=== PATIENT | female | born 1955 | race Caucasian/White ===

== ENCOUNTER → 2024-01-05 09:11 | Outpatient (REF) | payer OTHER, SELFPAY | LOC: HWWDC 09:11 | PROVIDERS: ATTENDING PHYSICIAN Family Medicine | DX: Z12.31 Encounter for screening mammogram for malignant neoplasm of breast (principal) | CPT/HCPCS: 77063; 77067 ==

== ENCOUNTER → 2024-09-13 16:03 | Outpatient (REF) | payer OTHER, SELFPAY | LOC: RAD 16:03 | PROVIDERS: ATTENDING PHYSICIAN Nurse Practitioner Adult Health; FAMILY PHYSICIAN Family Medicine | DX: R05.1 Acute cough (principal) | CPT/HCPCS: 71046 ==

== ENCOUNTER → 2025-01-07 10:32 | Outpatient (REF) | payer OTHER, SELFPAY | LOC: HWWDC 10:32 | PROVIDERS: ATTENDING PHYSICIAN Nurse Practitioner Adult Health; FAMILY PHYSICIAN Family Medicine | DX: Z12.31 Encounter for screening mammogram for malignant neoplasm of breast (principal) | CPT/HCPCS: 77063; 77067 ==

== ENCOUNTER → 2025-05-30 07:39 | Outpatient (REF) | payer OTHER, SELFPAY | LOC: HWRAD 07:39 | PROVIDERS: ATTENDING PHYSICIAN Nurse Practitioner Family | DX: R19.7 Diarrhea, unspecified (principal); R10.84 Generalized abdominal pain | CPT/HCPCS: 76700 ==

== ENCOUNTER 2025-08-30 09:46 | Outpatient (RCR) | payer OTHER, SELFPAY | END 2025-08-30 23:59 | disposition home or self-care (01) | LOC: RPT 09:46 | PROVIDERS: ATTENDING PHYSICIAN Internal Medicine; FAMILY PHYSICIAN Family Medicine | DX: M62.89 Other specified disorders of muscle (principal); K58.0 Irritable bowel syndrome with diarrhea; Z73.6 Limitation of activities due to disability; M62.81 Muscle weakness (generalized) | CPT/HCPCS: 97163; 97530 ==

== ENCOUNTER 2025-09-30 07:40 | Outpatient (RCR) | payer OTHER, SELFPAY | END 2025-09-30 23:59 | disposition home or self-care (01) | LOC: RPT 07:40 | PROVIDERS: ATTENDING PHYSICIAN Internal Medicine; FAMILY PHYSICIAN Family Medicine | DX: M62.89 Other specified disorders of muscle (principal); K58.0 Irritable bowel syndrome with diarrhea; Z73.6 Limitation of activities due to disability; M62.81 Muscle weakness (generalized) | CPT/HCPCS: 97110; 97140; 97530 ==

== ENCOUNTER 2025-10-28 07:14 | Outpatient (RCR) | payer OTHER, SELFPAY | END 2025-10-28 23:59 | disposition home or self-care (01) | LOC: RPT 07:14 | PROVIDERS: ATTENDING PHYSICIAN Internal Medicine; FAMILY PHYSICIAN Family Medicine | DX: M62.89 Other specified disorders of muscle (principal); K58.0 Irritable bowel syndrome with diarrhea; Z73.6 Limitation of activities due to disability; M62.81 Muscle weakness (generalized) | CPT/HCPCS: 97110; 97112; 97140; 97530 ==